=== PATIENT | male | born 1965 | race Two or more races ===

== ENCOUNTER 2016-10-14 00:48 | Emergency (ER) | payer SELFPAY ==
[~2016-10-14] VITALS: Ht 165.1 cm; Wt 72.6 kg
[2016-10-14] MEDS: KETOROLAC 15 MG/ML VIAL. IV ONE ×2 (01:15→01:35)
[2016-10-14] MEDS: HYDROmorphone 2 MG/ML VIAL IV ONE ×2 (01:15→01:35)
[2016-10-14] MEDS: ONDANSETRON PF 4 MG/2 ML VIAL. IV ONE ×2 (01:15→01:35)
[2016-10-14] MEDS: IV NORMAL SALINE 1000ML BAG 1,000 ML IV ONE ×2 (01:15→01:35)
[2016-10-14] MEDS ORDERED: KETOROLAC 15 MG/ML VIAL. IV ONE (01:30)
[2016-10-14] MEDS ORDERED: ONDANSETRON PF 4 MG/2 ML VIAL. IV ONE (01:30)
[2016-10-14] MEDS ORDERED: IV NORMAL SALINE 1000ML BAG 1,000 ML IV SCH (01:45)
[2016-10-14] MEDS ORDERED: HYDROmorphone 2 MG/ML VIAL IV ONE (01:45)
[2016-10-14 02:29] LABS: BASO % 0 % (0-3); EOS % 0 % (0-3); HEMATOCRIT 40.9 % (39.0-53.0); HEMOGLOBIN 14.3 g/dL (13.0-17.5); LYMPH # 2.5 x10^3/uL (1.0-4.8); LYMPH % 19 % (24-48); MEAN CORPUSCULAR HEMOGLOBIN 31 pg (25-35); MEAN CORPUSCULAR HGB CONC 35 g/dL (31-37); MEAN CORPUSCULAR VOLUME 90 fL (79-100); MONO % 5 % (0-9); NEUT % 75 % (31-73); PLATELET COUNT 261 x10^3/uL (140-400); RED BLOOD COUNT 4.55 x10^6/uL (4.30-5.70); RED CELL DISTRIBUTION WIDTH 12.7 % (11.5-14.5); WHITE BLOOD COUNT 13.3 x10^3/uL (4.0-11.0)
[2016-10-14 03:08] LABS: CALCIUM 8.9 mg/dL (8.5-10.1); CREATININE 0.8 mg/dL (0.7-1.3); GFR 103.2; POTASSIUM 3.1 mmol/L (3.5-5.1)
[2016-10-14 03:14] LABS: ALBUMIN 3.5 g/dL (3.4-5.0); ALBUMIN/GLOBULIN RATIO 0.8 (1.0-1.7); TOTAL BILIRUBIN 0.8 mg/dL (0.2-1.0); TOTAL PROTEIN 7.8 g/dL (6.4-8.2)
[2016-10-14 03:23] VITALS: BP 104/56
[2016-10-14 03:39] LABS: BILIRUBIN,URINE NEGATIVE (NEG); GLUCOSE,URINE NEGATIVE (NEG); NITRITE,URINE NEGATIVE (NEG); PH,URINE 5.5; PROTEIN,URINE NEGATIVE (NEG-TRACE); UROBILINOGEN,URINE 0.2 mg/dL (0.2 mg/dL)
[2016-10-14 03:40] LABS: BACTERIA,URINE FEW /HPF (0-FEW); RBC,URINE 20-40 /HPF (0-2); SPERM,URINE PRESENT /HPF; SQUAMOUS EPITHELIAL CELL,UR OCC /LPF; WBC,URINE 0 /HPF (0-4)
[2016-10-14] MEDS ORDERED: IBUP-1007 PO (03:42)
[2016-10-14] MEDS ORDERED: ONDA4TAB10 SL (03:42)
[2016-10-14] MEDS ORDERED: TAMS0.4C97 PO (03:42)
[2016-10-14] MEDS ORDERED: HYDR-971 PO (03:42)
--- NOTE | 2016-10-14 03:42 | PHYS DOC ---
Past Medical History Past Medical History: No Pertinent History Past Surgical History: No Surgical History Alcohol Use: Heavy Drug Use: None Adult General Chief Complaint Chief Complaint: TESTICULAR PAIN OR INJURY HPI HPI Patient is a 50 year old [f__sex] who presents with [] Review of Systems Review of Systems Constitutional: Denies fever or chills [] Eyes: Denies change in visual acuity, redness, or eye pain [] HENT: Denies nasal congestion or sore throat [] Respiratory: Denies cough or shortness of breath [] Cardiovascular: No additional information not addressed in HPI [] GI: Denies abdominal pain, nausea, vomiting, bloody stools or diarrhea [] : Denies dysuria or hematuria [] Musculoskeletal: Denies back pain or joint pain [] Integument: Denies rash or skin lesions [] Neurologic: Denies headache, focal weakness or sensory changes [] Endocrine: Denies polyuria or polydipsia [] Current Medications Current Medications Current Medications Medications (Trade) Dose Ordered Sig/Brigida Start Time Stop Time Status Last Admin Dose Admin Hydromorphone HCl (Dilaudid) 1 mg 1X ONCE 10/14/16 01:45 10/14/16 02:07 DC Ketorolac Tromethamine (Toradol) 15 mg 1X ONCE 10/14/16 01:30 10/14/16 02:07 DC Ondansetron HCl (Zofran) 4 mg 1X ONCE 10/14/16 01:30 10/14/16 02:07 DC Sodium Chloride 1,000 ml @ 1,000 mls/hr Q1H 10/14/16 01:45 10/14/16 02:44 DC Allergies Allergies Allergies Coded Allergies Type Severity Reaction Last Updated Verified No Known Drug Allergies 10/14/16 No Physical Exam Physical Exam Constitutional: Well developed, well nourished, no acute distress, non-toxic appearance. [] HENT: Normocephalic, atraumatic, bilateral external ears normal, oropharynx moist, no oral exudates, nose normal. [] Eyes: PERRLA, EOMI, conjunctiva normal, no discharge. [] Neck: Normal range of motion, no tenderness, supple, no stridor. [] Cardiovascular:Heart rate regular rhythm, no murmur [] Lungs & Thorax: Bilateral breath sounds clear to auscultation [] Abdomen: Bowel sounds normal, soft, no tenderness, no masses, no pulsatile masses. [] Skin: Warm, dry, no erythema, no rash. [] Back: No tenderness, no CVA tenderness. [] Extremities: No tenderness, no cyanosis, no clubbing, ROM intact, no edema. [] Neurologic: Alert and oriented X 3, normal motor function, normal sensory function, no focal deficits noted. [] Psychologic: Affect normal, judgement normal, mood normal. [] Current Patient Data Vital Signs Vital Signs Date Time Temp Pulse Resp B/P (MAP) Pulse Ox O2 Delivery O2 Flow Rate FiO2 10/14/16 01:05 98.3 85 22 121/81 (94) 95 Room Air 98.3 Lab Values Laboratory Tests Test 10/14/16 01:13 White Blood Count 13.3 x10^3/uL (4.0-11.0) H Red Blood Count 4.55 x10^6/uL (4.30-5.70) Hemoglobin 14.3 g/dL (13.0-17.5) Hematocrit 40.9 % (39.0-53.0) Mean Corpuscular Volume 90 fL (79-100) Mean Corpuscular Hemoglobin 31 pg (25-35) Mean Corpuscular Hemoglobin Concent 35 g/dL (31-37) Red Cell Distribution Width 12.7 % (11.5-14.5) Platelet Count 261 x10^3/uL (140-400) Neutrophils (%) (Auto) 75 % (31-73) H Lymphocytes (%) (Auto) 19 % (24-48) L Monocytes (%) (Auto) 5 % (0-9) Eosinophils (%) (Auto) 0 % (0-3) Basophils (%) (Auto) 0 % (0-3) Neutrophils # (Auto) 10.0 x10^3uL (1.8-7.7) H Lymphocytes # (Auto) 2.5 x10^3/uL (1.0-4.8) Monocytes # (Auto) 0.7 x10^3/uL (0.0-1.1) Eosinophils # (Auto) 0.1 x10^3/uL (0.0-0.7) Basophils # (Auto) 0.0 x10^3/uL (0.0-0.2) Sodium Level 137 mmol/L (136-145) Potassium Level 3.1 mmol/L (3.5-5.1) L Chloride Level 100 mmol/L (98-107) Carbon Dioxide Level 29 mmol/L (21-32) Anion Gap 8 (6-14) Blood Urea Nitrogen 21 mg/dL (8-26) Creatinine 0.8 mg/dL (0.7-1.3) Estimated GFR (Cockcroft-Gault) 103.2 BUN/Creatinine Ratio 26 (6-20) H Glucose Level 112 mg/dL (70-99) H Calcium Level 8.9 mg/dL (8.5-10.1) Total Bilirubin 0.8 mg/dL (0.2-1.0) Aspartate Amino Transferase (AST) 22 U/L (15-37) Alanine Aminotransferase (ALT) 30 U/L (16-63) Alkaline Phosphatase 84 U/L (46-116) Total Protein 7.8 g/dL (6.4-8.2) Albumin 3.5 g/dL (3.4-5.0) Albumin/Globulin Ratio 0.8 (1.0-1.7) L Laboratory Tests 10/14/16 01:13 Laboratory Tests 10/14/16 01:13 EKG EKG [] Radiology/Procedures Radiology/Procedures [] Course & Med Decision Making Course & Med Decision Making Pertinent Labs and Imaging studies reviewed. (See chart for details) [] Dragon Disclaimer Dragon Disclaimer This electronic medical record was generated, in whole or in part, using a voice recognition dictation system. Departure Departure Impression: Primary Impression: Renal colic on right side Disposition: 01 HOME, SELF-CARE Condition: IMPROVED Referrals: NO PCP (PCP) Patient Instructions: Kidney Stones Additional Instructions: Please return to the ER if you change your mind about wanting to be admitted to the hospital. Return the ER if the pain returns and gets too severe for you to manage at home with the pain medicines that you were given. Scripts Tamsulosin Hcl (FLOMAX) 0.4 Mg Cap.er.24h 1 CAP PO HS, #7 CAP 11 Refills Prov: AMANDA AGOSTO MD 10/14/16 Ondansetron (ZOFRAN ODT) 4 Mg Tab.rapdis 1 TAB SL Q6HRS Y for NAUSEA, #12 TAB Prov: AMANDA AGOSTO MD 10/14/16 Hydrocodone/Apap 5-325 (NORCO 5-325 TABLET) 1 Each Tablet 1 TAB PO QID Y for PAIN, #10 TAB Prov: AMANDA AGOSTO MD 10/14/16 Ibuprofen (IBUPROFEN) 600 Mg Tablet 600 MG PO PRN Q6HRS Y for PAIN, #20 TAB Prov: AMANDA AGOSTO MD 10/14/16 AMANDA AGOSTO MD October 14, 2016 03:42
--- NOTE | 2016-10-14 13:14 | RAD ---
[facility], 10/14/16. This study was performed at 1:43 AM. Due to downtime, a report could not be dictated. Dr. Cantrell however conveyed the preliminary results to the ER physician. I am dictating the study at 10:13 AM Procedure: Testicle Sonogram Clinical information: Right testicle pain for last 4 hours Date of service: 10/14/16 .Comparison: None available Technique: Real-time grayscale, color-flow, duplex Doppler and spectral analysis of the scrotal contents was performed and images are obtained. Findings: The testicles demonstrate normal size, contour and echogenicity. The right testicle measures 4.6 x 3.2 x 2.4 cm and left testicle measures 3.7 x 3.0 x 2.0 cm. There is normal testicular perfusion bilaterally. There is no evidence of a intratesticular mass lesion . The epididymis demonstrate normal size, contour and echogenicity. There is mild bilateral hydrocele. The scrotal soft tissues are unremarkable. Impression: 1. Mild bilateral hydrocele otherwise unremarkable testicular ultrasound. [facility]
--- NOTE | 2016-10-14 13:16 | RAD ---
Indication: Right flank pain. Axial imaging through the abdomen and pelvis was performed without contrast. The lung bases are clear. The liver and gallbladder are unremarkable. The pancreas and spleen are unremarkable. No adrenal mass is identified. There is a tiny nonobstructing calculus in the lower pole of the left kidney. The right kidney does demonstrate hydronephrosis. This is caused by a 5 mm calculus in the mid right ureter. No other calculi are identified. The small and large bowel loops are normal caliber. There is no ascites. The appendix is unremarkable. Impression: 5 mm mid right ureteric calculus producing moderate hydroureteronephrosis. There is also a tiny nonobstructing left renal calculus. PQRS Compliance Statement: One or more of the following individualized dose reduction techniques were utilized for this examination: 1. Automated exposure control 2. Adjustment of the mA and/or kV according to patient size 3. Use of iterative reconstruction technique
== END 2016-10-14 03:55 | disposition home or self-care (01) ==
LOC: ER 00:48
DX: N23 Unspecified renal colic (principal)
CPT/HCPCS: 36415; 74176; 76870; 80053; 81001; 85027; 87086; 96361; 96374; 96375; 99285; J1170; J1885; J2405; J7030